=== PATIENT | female | born 1970 | race Asian ===

== ENCOUNTER → 2018-03-20 | Outpatient (CLI) | payer BC ==
[2018-03-20 22:59] LABS: ADD MAN DIFF? NO; HAAIG REFLEX REFLEX FILED
[2018-03-20 23:03] LABS: WHITE BLOOD COUNT 8.3 10^3/ul (4.8-10.8)
[2018-03-20 23:03] LABS: ADD UMIC NO; BASOPHIL # 0.1 10^3/ul (0.0-0.1); EOSINOPHILS # 0.3 10^3/ul (0.0-0.5); EOSINOPHILS % 3.7 % (0.0-7.0); HEMATOCRIT 39.7 % (37.0-47.0); HEMOGLOBIN 12.8 g/dl (12.0-16.0); LYMPHOCYTES # 3.8 10^3/ul (0.8-2.9); LYMPHOCYTES % 45.6 % (15.0-51.0); MEAN CORPUSCULAR HGB CONC 32.2 g/dl (32.0-37.0); MEAN CORPUSCULAR VOLUME 86.9 fl (82.0-101.0); MEAN PLATELET VOLUME 9.6 fl (7.4-10.4); MONOCYTE # 0.6 10^3/ul (0.3-0.9); MONOCYTES % 7.4 % (0.0-11.0); NEUTROPHIL # 3.5 10^3/ul (1.6-7.5); NEUTROPHILS % 42.1 % (39.0-77.0); PLATELET COUNT 280 10^3/UL (140-415); RED BLOOD COUNT 4.57 10^6/ul (4.20-5.40); RED CELL DISTRIBUTION WIDTH 12.1 % (11.5-14.5); UR ASCORBIC ACID NEGATIVE (NEGATIVE); UR BILIRUBIN (Dip) NEGATIVE (NEGATIVE); UR BLOOD (Dip) NEGATIVE (NEGATIVE); UR CLARITY CLEAR (CLEAR); UR COLOR YELLOW (YELLOW); UR GLUCOSE (Dip) NEGATIVE (NEGATIVE); UR KETONES (Dip) NEGATIVE (NEGATIVE); UR LEUKOCYTE ESTERASE (Dip) NEGATIVE Leu/ul (NEGATIVE); UR NITRITE (Dip) NEGATIVE (NEGATIVE); UR SPECIFIC GRAVITY (Dip) 1.024 (1.003-1.030); UR TOTAL PROTEIN (Dip) NEGATIVE (NEGATIVE); UR UROBILINOGEN (Dip) 1+ mg/dL (NEGATIVE)
[2018-03-20 23:13] LABS: HEMOGLOBIN A1C 5.5 % (0-5.9)
[2018-03-20 23:24] LABS: LACTATE DEHYDROGENASE 428 IU/L (313-618)
[2018-03-20 23:26] LABS: ALANINE AMINOTRANSFERASE 28 IU/L (13-69); ALBUMIN 3.7 g/dl (3.3-4.9); ALBUMIN/GLOBULIN RATIO 0.97; ALKALINE PHOSPHATASE 61 IU/L (42-121); ANION GAP 13 (5-13); ASPARTATE AMINO TRANSFERASE 29 IU/L (15-46); BILIRUBIN,INDIRECT 0.2 mg/dl (0-1.1); BILIRUBIN,TOTAL 0.2 mg/dl (0.2-1.3); BLOOD UREA NITROGEN 18 mg/dl (7-20); CALCIUM 9.1 mg/dl (8.4-10.2); CARBON DIOXIDE 26 mmol/L (21-31); CHLORIDE 104 mmol/L (97-110); CHOL/HDL RATIO 4.4 RATIO; CHOLESTEROL 183 mg/dl (100-200); CREATININE 0.54 mg/dl (0.44-1.00); Estimated GFR > 60 mL/min (>60); GLUCOSE 111 mg/dl (70-220); HDL CHOLESTEROL 41 mg/dl (34-88); LDL CHOLESTEROL,CALCULATED 103 mg/dl; SODIUM 143 mmol/L (135-144); TOTAL PROTEIN 7.5 g/dl (6.1-8.1); TRIGLYCERIDES 193 mg/dl (0-149)
[2018-03-20 23:57] LABS: HEPATITIS B SURFACE ANTIGEN NEGATIVE (NEGATIVE)
[2018-03-21 00:14] LABS: HEPATITIS B CORE ANTIBODY NEGATIVE (NEGATIVE); HEPATITIS C VIRAL ANTIBODY NEGATIVE (NEGATIVE)
[2018-03-21 00:30] LABS: FOLATE 9.1 ng/ml (2.8-20.0)
== END | disposition home or self-care (01) ==
LOC: LAB 07:55
DX: N60.19 Diffuse cystic mastopathy of unspecified breast (principal)
CPT/HCPCS: 80053; 80061; 81003; 82306; 82607; 82746; 83001; 83036; 83615; 84443; 85025; 86704; 86709; 86803; 87086; 87340